=== PATIENT | male | born 1995 | race Caucasian/White ===

== ENCOUNTER 2019-10-16 11:10 | Emergency (ER) | payer OTHER ==
[~2019-10-16] VITALS: Ht 182.9 cm; Wt 59.0 kg
[2019-10-16 15:36] VITALS: BP 124/70
== END 2019-10-16 15:36 | disposition home or self-care (01) ==
LOC: ED 11:10
DX: J11.1 Influenza due to unidentified influenza virus with other respiratory manifestations (principal)

== ENCOUNTER 2019-10-19 11:33 | Emergency (ER) | payer OTHER ==
[~2019-10-19] VITALS: Ht 182.9 cm; Wt 57.6 kg
[2019-10-19 11:46] VITALS: Ht 182.9 cm; Wt 57.6 kg
[2019-10-19 15:34] VITALS: BP 112/71
== END 2019-10-19 15:34 | disposition home or self-care (01) ==
LOC: ED 11:33
DX: J11.1 Influenza due to unidentified influenza virus with other respiratory manifestations (principal)